=== PATIENT | female | born 1950 | race Asian ===

== ENCOUNTER 2017-09-14 07:25 | Emergency (ER) | payer SELFPAY ==
[~2017-09-14] VITALS: Ht 152.4 cm; Wt 47.6 kg
[2017-09-14 07:32] VITALS: BP 153/84
[2017-09-14 08:57] VITALS: BP 147/78
== END 2017-09-14 08:58 | disposition home or self-care (01) ==
LOC: MED 07:25
DX: S20.219A Contusion of unspecified front wall of thorax, initial encounter (principal); V89.2XXA Person injured in unspecified motor-vehicle accident, traffic, initial encounter; Y93.I9 Activity, other involving external motion; Y92.488 Other paved roadways as the place of occurrence of the external cause; Y99.8 Other external cause status
CPT/HCPCS: 71046; 93005; 99284